=== PATIENT | male | born 1955 | race Caucasian/White ===

== ENCOUNTER 2018-07-04 11:15 | Emergency (ER) | payer BC ==
[~2018-07-04] VITALS: Ht 188 cm; Wt 90.9 kg
[~2018-07-04 11:15] MED LIST: FLEXERIL10 MG PO; LORTAB 5/500 501 TAB PO; PULMICORT180 MCG/A1 IH; PULMICORT180 MCG/Ac IH; SINGULAIR; SINGULAIR 110 MG/TAB PO
[2018-07-04] MEDS ORDERED: BLOOD PRESSURE MED PO (11:30)
[2018-07-04] MEDS ORDERED: FLEXERIL 1010 MG/TAB PO (12:59)
[2018-07-04] MEDS ORDERED: NORCO 325 MG-51 TAB PO (12:59)
[2018-07-04 13:34] LABS: COLLECTION METHOD CLEAN CATCH
[2018-07-04 13:42] LABS: MUCOUS Present /lpf; PH 5 (5-8); SQUAMOUS EPITHELIAL None Seen /hpf; URINE APPEARANCE Clear; URINE BACTERIA None Seen /hpf; URINE BILIRUBIN Negative (NEGATIVE); URINE BLOOD Negative (NEGATIVE); URINE COLOR Yellow; URINE GLUCOSE Negative (NEGATIVE); URINE KETONE Negative (NEGATIVE); URINE LEUKOCYTE ESTERASE Negative (NEGATIVE); URINE NITRATE Negative (NEGATIVE); URINE PROTEIN(semi-quant) Negative (NEGATIVE); URINE RBC 0-2 /hpf; URINE UROBILINOGEN Negative (NEGATIVE)
[2018-07-04 14:15] VITALS: BP 114/84; PULSE 67; TEMP 96.8
== END 2018-07-04 14:14 | disposition home or self-care (01) ==
LOC: COL.ER 11:15
PROVIDERS: Emergency Medicine
DX: M54.42 Lumbago with sciatica, left side (principal); I10 Essential (primary) hypertension; J45.909 Unspecified asthma, uncomplicated; F17.210 Nicotine dependence, cigarettes, uncomplicated; Z88.0 Allergy status to penicillin; Z88.6 Allergy status to analgesic agent
CPT/HCPCS: J1170; J1885; J2060; J2360

== ENCOUNTER 2020-03-30 07:59 | Emergency (ER) | payer MEDICARE, OTHER ==
[~2020-03-30] VITALS: Ht 190.5 cm; Wt 90.9 kg
[~2020-03-30 07:59] MED LIST changes: +BLOOD PRESSURE MED PO; +FLEXERIL 1010 MG/TAB PO; +NORCO 325 MG-51 TAB PO
[2020-03-30 08:06] VITALS: TEMP 99.1
[2020-03-30 09:02] LABS: BASO % 0.2 % (0.0-2.0); EOS % 0.3 % (0-4.0); GRAN # 11.2 (1.4-6.5); GRAN % 80.8 % (42.2-75.2); HEMATOCRIT 42.5 % (42.0-52.0); HEMOGLOBIN 14.7 g/dl (13.5-18.0); LYMPH # 1.1 (1.2-3.4); LYMPH % 8.3 % (20.0-51.0); MEAN CELL VOLUME 89 fl (80.0-100.0); MEAN CORPUSCULAR HEMOGLOBIN 31 pg (27.0-31.0); MEAN CORPUSCULAR HGB CONC 35 g/dl (33.0-37.0); MEAN PLATELET VOLUME 11.7 fl (7.4-10.4); MONO # 1.4 (0.1-0.6); PLATELET COUNT 259 K/mm3 (130-400); RED BLOOD COUNT 4.77 M/mm3 (4.20-5.60); REDCELL DISTRIBUTION WIDTH-CV 11.2 % (11.5-14.5)
[2020-03-30 09:06] LABS: ALBUMIN 4.5 gm/dL (3.5-5.0); BILIRUBIN,TOTAL 1.9 mg/dL (0.0-1.0); C-REACTIVE PROTEIN 1.5 mg/dL (0.0-0.9); CALCIUM 9.7 mg/dL (8.4-10.2); CREATININE, serum 1.51 (0.66-1.25); POTASSIUM 4.4 mmol/L (3.4-5.0); TOTAL PROTEIN 7.5 gm/dL (6.4-8.2)
[2020-03-30 09:26] LABS: COLLECTION METHOD CLEAN CATCH
[2020-03-30 09:35] LABS: MUCOUS Present /lpf; PH 5 (5-8); SQUAMOUS EPITHELIAL None Seen /hpf; URINE APPEARANCE Clear; URINE BACTERIA None Seen /hpf; URINE BILIRUBIN Negative (NEGATIVE); URINE BLOOD Negative (NEGATIVE); URINE COLOR Yellow; URINE GLUCOSE Negative (NEGATIVE); URINE KETONE Trace (NEGATIVE); URINE LEUKOCYTE ESTERASE Negative (NEGATIVE); URINE NITRATE Negative (NEGATIVE); URINE PROTEIN(semi-quant) Negative (NEGATIVE); URINE RBC 0-2 /hpf; URINE UROBILINOGEN Negative (NEGATIVE)
[2020-03-30] MEDS ORDERED: NORCO 325 MG-51 TAB PO (10:56)
[2020-03-30] MEDS ORDERED: CEFTIN 250250 MG/TAB PO (10:56)
[2020-03-30] MEDS ORDERED: ZOFRAN ODT4 MG PO (10:56)
[2020-03-30 11:40] VITALS: BP 154/91; PULSE 79
== END 2020-03-30 11:40 | disposition home or self-care (01) ==
LOC: COL.ER 07:59
PROVIDERS: Physician Assistant
DX: N32.9 Bladder disorder, unspecified (principal); N28.89 Other specified disorders of kidney and ureter; J45.909 Unspecified asthma, uncomplicated; F17.210 Nicotine dependence, cigarettes, uncomplicated; Z86.010 Personal history of colon polyps; Z88.0 Allergy status to penicillin; Z79.51 Long term (current) use of inhaled steroids
CPT/HCPCS: J1170; J1885; J2405; J7030; Q9967

== ENCOUNTER 2020-04-05 05:27 | Day surgery (SDC) | payer MEDICARE, OTHER ==
[~2020-04-05] VITALS: Ht 190.5 cm; Wt 97.5 kg
[~2020-04-05 05:27] MED LIST changes: +CEFTIN 250250 MG/TAB PO; +ZOFRAN ODT4 MG PO
[2020-04-05] MEDS ORDERED: COZAAR 25MG25 MG/TAB PO (05:59)
[2020-04-05] MEDS ORDERED: LIPITOR20 MG PO (06:01)
[2020-04-05] MEDS ORDERED: PYRIDIUM 100MG100 MG PO (06:02)
[2020-04-05 06:06] VITALS: BP 139/79; PULSE 100; TEMP 99.6
[2020-04-05 08:20] VITALS: BP 128/78; PULSE 74; TEMP 98.4
--- NOTE | 2020-04-05 08:20 | NUR ---
Patient arrives to [facility] [place] [facility] via cart, accompanied by NURSE FIRST ASSIST Lyubov. He is lying in bed, awake, oriented. He denies pain or nausea. Monitoring is applied for post-operative vitals - VSS and WNL on room air. He is sipping water. He voided in the PACU. Call light usage is taught and within reach.
[2020-04-05 08:35] VITALS: BP 120/77; PULSE 75
--- NOTE | 2020-04-05 08:35 | NUR ---
Patient is resting comfortably in room. He is drinking water. He does not want anything to eat. VSS on room air. He denies any pain or nausea.
[2020-04-05 08:50] VITALS: BP 132/75; PULSE 81
--- NOTE | 2020-04-05 08:50 | NUR ---
VSS and WNL on room air. He denies pain or nausea. He ambulates to the restroom and voids again.
--- NOTE | 2020-04-05 09:25 | NUR ---
Patient has met discharge criteria. PIV is removed with catheter intact and hemostasis achieved. He changes to his clothing independently. Discharge instructions are discussed. He denies any questions and verbalizes understanding. He is escorted to the exit via wheelchair. He is discharged to home with ride in private vehicle at 0925.
== END 2020-04-05 09:25 | disposition home or self-care (01) ==
LOC: SDCO 05:27
DX: N13.1 Hydronephrosis with ureteral stricture, not elsewhere classified (principal); J45.909 Unspecified asthma, uncomplicated; I10 Essential (primary) hypertension; Z88.0 Allergy status to penicillin; Z88.6 Allergy status to analgesic agent; Z87.891 Personal history of nicotine dependence
CPT/HCPCS: C1769; C2617; J1100; J1956; J2405; J2704; J3010; J7120; Q9967

== ENCOUNTER → 2020-04-24 | Outpatient (CLI) | payer MEDICARE, OTHER ==
[~2020-04-24] MED LIST changes: +COZAAR 25MG25 MG/TAB PO; +LIPITOR20 MG PO; +PYRIDIUM 100MG100 MG PO
== END ==
LOC: COL.RAD 11:59
DX: N13.0 Hydronephrosis with ureteropelvic junction obstruction (principal)
CPT/HCPCS: J1940

== ENCOUNTER 2022-07-05 11:47 | Emergency (ER) | payer MEDICARE, OTHER ==
[~2022-07-05] VITALS: Ht 182.9 cm; Wt 100.0 kg
[2022-07-05 12:35] VITALS: TEMP 98.9
[2022-07-05 12:57] LABS: COLLECTION METHOD CLEAN CATCH
[2022-07-05 13:06] LABS: MUCOUS Present (NOT PRESENT); PH 5 (5-8); SQUAMOUS EPITHELIAL 0-2 /hpf (0-10); URINE APPEARANCE Clear (CLEAR/HAZY); URINE BACTERIA Rare /hpf (NONE SEEN); URINE COLOR Yellow (YELLOW); URINE GLUCOSE 2+ (NEGATIVE); URINE KETONE Negative (NEGATIVE); URINE NITRATE Negative (NEGATIVE); URINE PROTEIN(semi-quant) 1+ (NEGATIVE)
[2022-07-05 13:07] LABS: URINE BLOOD Negative (NEGATIVE)
[2022-07-05] MEDS ORDERED: FLEXERIL 1010 MG/TAB PO (13:25)
[2022-07-05 13:35] VITALS: BP 139/82; PULSE 80
== END 2022-07-05 13:35 | disposition home or self-care (01) ==
LOC: COL.ER 11:47
PROVIDERS: Emergency Medicine
DX: M54.50 Low back pain, unspecified (principal); Z87.891 Personal history of nicotine dependence; Z88.6 Allergy status to analgesic agent; X50.1XXA Overexertion from prolonged static or awkward postures, initial encounter
CPT/HCPCS: J1885